=== PATIENT | male | born 1975 | race Caucasian/White ===

== ENCOUNTER 2017-04-04 15:09 | Emergency (ER) | payer OTHER ==
--- NOTE | ~2017-04-04 | CR181 ---
[facility] A Service of [facility] RADIOLOGY TEXT RESULTS PATIENT: ROBBI MCNULTY LOCATION: [facility] : [birth year] UNIT #: [id number] AGE: [address]: Nelsy Beckett APRN SEX: M ORDER DR: [id number] [facility] [address] [facility] [place], [place] [address] [id number] MR#: [id number] Acc #: [id number] NAME: ROBBI MCNULTY : 1975 SEX: M STUDY DATE/TIME: 04/04/2017 16:26 UNIT: CFTX ROOM: STUDY DESCRIPTION: CR Lumbar Spine 2 or 3 Views Attending Physician: Nelsy Beckett A.P.R.N. Ordering Physician: Ed Doctor [id number] [facility] Primary Care Physician: Primary Care Physician No MEDICAL IMAGING REPORT This report is preliminary unless electronic signature is present EXAM Lumbar spine series 2 views 04/04/2017 COMPARISON None. HISTORY Back pain radiating to the left leg with left leg numbness and tingling paresthesias for one month. FINDINGS AP and lateral projections of the lumbar segment show good mineralization of both anterior and posterior elements. They are all anatomically normal without indication of fracture, dislocation, or malignant change of a sclerotic or lytic type. There is no congenital defect noted. The sacroiliac joints are normal. IMPRESSION Normal lumbar spine. Dictated by... Robi Mcfadden M.D. THIS IS AN ELECTRONICALLY VERIFIED REPORT Robi Mcfadden M.D. at 04/09/2017 10:33 AM ROGER/rnr TD: 04/05/2017 00:16 JOB #: [id number] [facility] A Service [facility] RADIOLOGY TEXT RESULTS PATIENT: ROBBI MCNULTY LOCATION: [facility] : [birth year] UNIT #: [id number] AGE: [address]: Nelsy Beckett APRN SEX: M ORDER DR: MEDICAL IMAGING REPORT Page 1 of 1 COPY
[~2017-04-04 15:09] MED LIST: AFRIN3 ML; AMOXICILLIN875 MG PO; BACTRIM DS TABL1 TA1 PO; BACTRIM DS TABL1 TA2 PO; BACTRIM DS TABL1 TAB PO; BROMPHED; FIORICET 50-321 EACH PO; IBUPROFEN PO; IBUPROFEN800 MG PO; KEFLEX500 MG PO; LEVAQUIN PO; LORTAB 10-5001 EACH PO; LORTAB 5/500 TA1 TA1 PO; MEDROL PO; NAPROSYN500 MG; NO MEDICATIONS; PHENERGAN PO; PHENERGAN25 MG PO; SKELAXIN PO; VIBRAMYCIN100 M1 PO; VICODIN 5/500 T1 TAB PO; VOLTAREN75 MG PO
== END 2017-04-04 17:30 | disposition home or self-care (01) ==
LOC: CED 15:09 → CFTX 15:09
DX: M54.42 Lumbago with sciatica, left side (principal); F17.210 Nicotine dependence, cigarettes, uncomplicated
CPT/HCPCS: 72100; 96372; 99283; J1885